=== PATIENT | male | born 1975 | race Caucasian/White ===

== ENCOUNTER 2024-05-31 13:54 | Emergency (ER) | payer OTHER, SELFPAY ==
[2024-05-31 14:03] VITALS: BP 148/89
--- NOTE | 2024-05-31 16:15 | ED.GENMED ---
History of Present Illness
General
Chief Complaint: Musculo-Skeletal Complaint
Source: patient
Time Seen by Provider: 05/31/24 16:05
History of Present Illness
History of Present Illness:
48-year-old male with past medical history of bipolar disorder and hypertension presenting to the emergency department for evaluation of left-sided upper back/neck pain that started about a week and a half ago, started to feel little bit better on
but then reoccurred Sunday and again into today. Patient describes the pain to be an aching sensation with pain and paresthesia radiating into the left upper arm and forearm as well as into the ring middle and index finger. Patient states
he cannot think of anything that may be caused the pain or symptoms. He denies any heavy lifting, bending, twisting. Denies any history of similar. Has been taking some Motrin/ibuprofen with minimal relief. He denies any fevers or infectious
symptoms.
Past History
Past History
ED Past Medical History: HTN and Psychiatric (bipolar)
ED Past Surgical History: Negative Cardiac
Social History
Tobacco: Non-smoker
Alcohol: None
Drug: None
Personal:
Living: with family
Employment: Employed
Family History
Family History: Other (Noncontributory)
Review of Systems
Review of Systems
All Other Systems: ROS reviewed and negative except as documented in HPI and ROS
Phy Exam
Physical Exam
Physical Exam:
GENERAL: Alert , in no apparent distress
EYE: conjunctiva clear
NECK: Supple, no midline tenderness. Mild tenderness along the medial border of the scapula
ENT: o/p clr, mmm.
CARDIAC: Regular rate and rhythm
LUNGS: Clear breath sounds bilaterally, no acute respiratory distress, no wheezes/rales/rhonchi
NEUROLOGICAL: Alert and oriented,
SKIN: Warm and dry, skin intact.
MUSCULOSKELETAL: well perfused. Full active and passive range of motion with minimal discomfort. Extremities otherwise warm and well-perfused and neurovascularly intact
PSYCH: Normal and appropriate interaction.
Scores
Heart Failure Risk
Heart Failure Risk Score: Not Applicable
Heart Score for Chest Pain Patients
STEMI patient?: Not applicable
Withdrawal Assessment of Alcohol
Withdrawal Assessment Completed?: Not applicable
Course
Vital Signs
Initial and Last Documented VS:
Initial Vital Signs
Temp Pulse Resp BP Pulse Ox
98.1 F 88 16 148/89 98
05/31/24 14:03 05/31/24 14:03 05/31/24 14:03 05/31/24 14:03 05/31/24 14:03
Last Documented Vital Signs
Temp Pulse Resp BP Pulse Ox
98.1 F 77 16 131/78 96
05/31/24 14:03 05/31/24 16:33 05/31/24 16:33 05/31/24 16:33 05/31/24 16:33
MDM/Problems Addressed
Differential Diagnosis Includes:
Cervical radiculopathy, muscle strain, no concern for an acute cord impingement, DVT
MDM/Problems Addressed:
48-year-old male presenting emergency department for evaluation of left upper back/neck pain with radicular symptoms. Pain reproducible with palpation over the medial of the scapula. Patient in no acute distress. Symptoms do seem to be somewhat
positional in nature. I suspect musculoskeletal etiology to be the most likely diagnosis. Continue NSAIDs, prescription for Medrol Dosepak and muscle relaxant sent to pharmacy. Patient can also use topical agents as needed. Encourage close
follow-up with primary care provider. I did discuss imaging including x-ray as well as more advanced imaging such as MRI with the patient. Patient is declining x-ray at this time. Aware of return precautions to the ER.
*Pulse Oximetry
Patient hypoxic: no
*Critical Care Note
Total Time (30-74mins, 75-104mins- exclusive of procedures): Not Applicable
Data Reviewed
Further Testing Considered But Not Given:
Discussed imaging with patient however patient declines at this time
ED Attending Note
-
Portions of this chart may have been created with voice recognition software.� Occasional wrong word or��sound alike� substitutions may have occurred due to the inherent limitations of voice recognition software.
Discharge Plan
Departure
Patient Disposition: Home (Routine Discharge)
Date of Disposition: 05/31/24
Time of Disposition: 16:16
Patient with high blood pressure during this ER visit?: Yes
Discharge Problem:
Cervical radiculopathy
Instructions: Radiculopathy (DC)
Prescriptions:
New
methylprednisolone [Medrol (Tushar)] 4 mg tablets,dose pack
4 mg PO DIRECTED Qty: 21 0RF
baclofen 10 mg tablet
10 mg PO BID Qty: 10 0RF
No Action
montelukast [Singulair] 10 mg Tablet
10 mg PO HS
multivitamin Tablet
1 tab PO DAILY
olanzapine [Zyprexa] 5 mg Tablet
5 mg PO HS
carbamazepine 200 mg Tablet
200 mg PO BID
calcium carbonate [Calcium 600] 600 mg calcium (1,500 mg) Tablet
600 mg PO DAILY
lisinopril 10 mg Tablet
10 mg PO DAILY
lorazepam 1 mg Tablet
1 mg PO HS
lamotrigine 200 mg Tablet Extended Release 24hr
200 mg PO BID
polyethylene glycol 3350 17 gram Powder In Packet
17 g PO DAILY Qty: 0 0RF
docusate sodium 100 mg Capsule
100 mg PO BID Qty: 0 0RF
Referrals:
Glenn Coyle MD [Family Provider] -
Interventions
Interventions:
*Risk Screen - Suicide Last Done: 05/31/24 16:33
*General Assessment Last Done: 05/31/24 16:33
*Neglect/Abuse Screening Last Done: 05/31/24 16:33
ED- Fall Risk Assessment Last Done: 05/31/24 16:37
*ED COVID-19 Vaccine History Last Done: 05/31/24 16:33
*Nursing Disposition Last Done: 05/31/24 16:37
ED-Musculoskeletal Assessment Last Done: 05/31/24 16:33
Discharge Date and Time
Discharge Date/Time: 05/31/24 16:38
Print Language: SYRIAC
[2024-05-31 16:33] VITALS: BP 131/78
== END 2024-05-31 16:38 | disposition home or self-care (01) ==
LOC: EMR 13:54
PROVIDERS: EMERGENCY PHYSICIAN Student in an Organized Health Care Education/Training Program; FAMILY PHYSICIAN Family Medicine
DX: M54.12 Radiculopathy, cervical region (principal); I10 Essential (primary) hypertension; F31.9 Bipolar disorder, unspecified
CPT/HCPCS: 99283